=== PATIENT | male | born 1980 | race Caucasian/White ===

== ENCOUNTER 2016-09-19 12:45 | Emergency (ER) | payer SELFPAY ==
[2016-09-19] MEDS ORDERED: LISINOPRIL 20 MG TAB PO ONE (13:24)
[2016-09-19] MEDS ORDERED: HYDROCHLOROTHIAZIDE 25 MG TAB PO ONE (13:30)
[2016-09-19 13:43] LABS: BACTERIA TRACE /hpf (NONE SEEN); MUCUS 1+ /lpf (NONE-1+); RBC,URINE NONE SEEN /hpf (0-3); WBC,URINE 0-1 /hpf (0-3)
--- NOTE | 2016-09-19 14:59 | EDPHY ---
H & P Stated Complaint: 3 mos swelling/pain L testicle; treated w abx; inceased noduals noted Time Seen by Provider: 09/19/16 12:54 HPI/ROS: CHIEF COMPLAINT:Testicular mass HISTORY OF PRESENT ILLNESS: this is a 35-year-old male who presents concerned about mass that he feels in his left testicle. He states that 3 months ago he had an episode of scrotal and testicular swelling that was treated with antibiotics. There was no imaging done at the time. Shortly thereafter he noticed a firm mass involving his left testicle. This has persisted. Of late he has become more aware of that area and he is experiencing mild discomfort. He has not had swelling. However, he does report 2 other episodes of left testicular swelling in his life once when he was 15 years old and once as an adult after intercourse. He has no urinary symptoms -- no difficulty initiating urination, no hematuria, no urgency, or frequency. He is not currently sexually active and has not been for the past 8 months. He has no history of sexually transmitted disease. He denies genital lesions and penile drainage. He has not had fever and has not otherwise been ill. He denies abdominal pain. He has a history of reactive airway disease and hypertension. He does not have primary care physician and has not taken any medications for the last month or so. REVIEW OF SYSTEMS: A ten point review of systems was performed and is negative with the exception of the items mentioned in the HPI. He knows that his blood pressure is likely high as he has not taken any antihypertensive sore weeks. He denies shortness of breath, chest pain, headache. - Personal History Current Tetanus/Diphtheria Vaccine: Yes - Medical/Surgical History Hx Asthma: Yes Other PMH: htn. asthma. diverticulitis. colon resection. Schatzke's ring. tonsils. ear tubes - Social History Smoking Status: Current every day smoker Alcohol Use: None Drug Use: None Additional Social History: He currently works as a review trainer. He is relatively new to this area. - Physical Exam Exam: General Appearance: Alert. Vital signs reviewed. Initial blood pressure 182/118. Eyes: Pupils equal and round, no conjunctival injection, no discharge. Anicteric. Respiratory: Lungs are clear to auscultation; no wheezes, rales, or rhonchi. Cardiovascular: Regular rate and rhythm; no murmur, rub, or gallop. Gastrointestinal: Abdomen is Obese,soft and nontender, bowel sounds normal. Genitalia: Circumcised male. Bilaterally descended testes. neither testicle is enlarged. There is no scrotal swelling. There is a firm area, smaller than a pea, on the anterolateral aspect of the left testicle superiorly. This does not feel as if it is associated with the epididymis. Skin: Warm and dry, no rashes on exposed skin, normal color. Back: Nontender to palpation over the thoracolumbar spine. No CVAT. Extremities: No lower extremity edema, no calf tenderness or swelling. Neurological: Alert and oriented. Moving all four extremities easily and equally. Psychiatric: Normal affect. Constitutional: Initial Vital Signs Temperature (C) 36.9 C 09/19/16 12:51 Heart Rate 81 09/19/16 12:51 Respiratory Rate 20 09/19/16 12:51 Blood Pressure 182/118 H 09/19/16 12:51 O2 Sat (%) 97 09/19/16 12:51 O2 Delivery Mode Room Air Allergies/Adverse Reactions: No Known Allergies Allergy (Verified 09/19/16 12:58) Home Medications: Medication Instructions Recorded Advair 500/50 (*) 09/19/16 Albuterol 09/19/16 Albuterol [Proventil Inhaler HFA 1 - 2 puffs IH Q4 #1 mdi 09/19/16 (*)] Hydrochlorothiazide 25 mg PO DAILY #30 tablet 09/19/16 Lisinopril [Zestril 40 mg (*)] 40 mg PO DAILY #30 tab 09/19/16 Medical Decision Making - Diagnostics Imaging: Discussed imaging studies w/ bingo caller Radiologist ED Course/Re-evaluation: Testicular ultrasound reviewed with Dr. Pratt. There is no torsion. Dr Pratt notes a bandlike area of density On the ultrasound that might represent scar tissue. I think this is what he is feeling. I can palpate this area when I examined him. There is also a left varicocele. I relayed these results to the patient. I am recommending urologic follow-up. [facility] is being referred [facility], as he is uninsured. [facility] should be able to arrange urologic care for him. I am writing prescriptions for his albuterol , lisinopril, and hydrochlorothiazide. He was hypertensive in the emergency department without symptoms of end-organ failure with pressurs high enough to indicate hypertensive urgency. He was given a dose of lisinopril. We do not have hydrochlorothiazide available. He understands the importance of filling his prescriptions today and taking his medications regularly. DC BP 133/89. Differential Diagnosis: I considered a differential diagnosis that includes but is not limited due to testicular torsion, epididymitis, urinary tract infection, varicocele, hydrocele , and malignancy. - Data Points Laboratory Results: 09/19/16 13:29 C.trachomatis RNA (TMA) NEGATIVE (NEGATIVE) N.gonorrhoeae RNA (TMA) NEGATIVE (NEGATIVE) Medications Given: Discontinued Medications Hydrochlorothiazide (Hydrochlorothiazide) 25 mg PO EDNOW ONE Stop: 09/20/16 13:26 Last Admin: 09/19/16 14:44 Dose: 25 mg Hydrochlorothiazide (Hydrochlorothiazide) 25 mg PO EDNOW ONE Stop: 09/19/16 13:31 Last Admin: 09/19/16 13:42 Dose: Not Given Lisinopril (Zestril) 40 mg PO EDNOW ONE Stop: 09/19/16 13:25 Last Admin: 09/19/16 13:50 Dose: 40 mg Departure - Departure Disposition: Home, Routine, Self-Care Clinical Impression: Hypertension, Left varicocele Condition: Good Instructions: Varicocele (ED), Testicle Pain (ED), Hypertension (ED) Additional Instructions: I am writing prescriptions for your albuterol, lisinopril, and hydrochlorothiazide. It is absolutely imperative that you arrange follow-up with the primary care doctor so that you can get your blood pressure under better control. I am referring you to [facility]. You should call their office and arrange to register as a patient. They can help you establish care with a urologist also. Referrals: [facility] [Outside] - As per Instructions Prescriptions: Albuterol [Proventil Inhaler HFA (*)] 1 - 2 puffs IH Q4 #1 mdi Hydrochlorothiazide 25 mg PO DAILY #30 tablet Lisinopril [Zestril 40 mg (*)] 40 mg PO DAILY #30 tab
[2016-09-19 15:27] VITALS: BP 133/89; PULSE 88; RESP 18; TEMP 98.2; O2SAT 94
[2016-09-20] MEDS ORDERED: HYDROCHLOROTHIAZIDE 25 MG TAB PO ONE (13:25)
[2016-09-22 06:50] LABS: CHLAMYDIA AMPLIFICATION GENPRB NEGATIVE (NEGATIVE)
== END 2016-09-19 15:26 | disposition home or self-care (01) ==
LOC: CED 12:45
DX: I86.1 Scrotal varices (principal); I10 Essential (primary) hypertension; J45.909 Unspecified asthma, uncomplicated; F17.200 Nicotine dependence, unspecified, uncomplicated
CPT/HCPCS: 76870-PO; 81015-PO